=== PATIENT | female | born 1985 | race Caucasian/White ===

== ENCOUNTER 2016-12-26 09:40 | Emergency (ER) | payer OTHER ==
[~2016-12-26] VITALS: Ht 160 cm; Wt 65.0 kg
[~2016-12-26 09:40] MED LIST: ACET325T33 PO; HYDR-906 PO; IBUP-1542 PO; METFORMIN PO; ONDA4TAB8 PO
[2016-12-26 09:49] VITALS: Ht 160 cm; Wt 65.0 kg
[2016-12-26] MEDS ORDERED: IBUP-1542 PO (12:23)
[2016-12-26 12:37] VITALS: BP 128/68; PULSE 66; RESP 18
--- NOTE | 2016-12-26 12:52 | ERD ---
ER Documentation Chief Complaint Date/Time DATE: 12/26/16 TIME: 12:45 Chief Complaint PRESSURE LIKE CHEST PAIN NON RADIATING STARTED 1 HR AGO HPI 31-year-old female complaining of left-sided chest pain started since 8 AM this morning. Patient stated the pain is constant and sharp. Pain is worse with arm movement and when pressing on the chest. There is no radiation of the pain. Patient has history of diabetes, denies any other medical history. Denies shortness of breath. Denies injuries. Denies fever or chills. ROS All systems reviewed and are negative except as per history of present illness. Medications Home Meds Active Scripts Ibuprofen* (Motrin*) 600 Mg Tab, 600 MG PO Q6H Y for PAIN AND OR ELEVATED TEMP, #30 TAB Prov:AUBRIE BARTH DIRECTOR OF SPECIAL EVENTS 12/26/16 Ondansetron Hcl* (Zofran*) 4 Mg Tablet, 4 MG PO Q6H for NAUSEA AND/OR VOMITING, #30 TAB Prov:BENJAMIN KRISHNAMURTHY 08/04/16 Ibuprofen* (Motrin*) 600 Mg Tab, 600 MG PO Q6, #30 TAB Prov:BENJAMIN KRISHNAMURTHY C 08/04/16 Hydrocodone/Acetaminophen (Coleraine 5-325 Tablet) 1 Each Tablet, 1 TAB PO Q6H Y for PAIN, #20 TAB Prov:BENJAMIN KRISHNAMURTHY 08/04/16 Acetaminophen* (Tylenol*) 325 Mg Tablet, 2 TAB PO Q8 Y for PAIN AND OR ELEVATED TEMP, #20 TAB Prov:RAVEN GARCIA PA-C 09/23/15 Ibuprofen* (Motrin*) 600 Mg Tab, 600 MG PO Q6H Y for PAIN AND OR ELEVATED TEMP, #30 Prov:DAHLIA HOFF 05/11/15 Reported Medications [Metformin] No Conflict Check, PO DAILY for DIABETES 05/11/15 Allergies Allergies: Coded Allergies: No Known Allergy (Unverified , 05/11/15) PMhx/Soc History of Surgery: Yes ( X1) Anesthesia Reaction: No Hx Neurological Disorder: No Hx Respiratory Disorders: No Hx Cardiac Disorders: No Hx Psychiatric Problems: No Hx Miscellaneous Medical Probl: Yes (DM) Hx Alcohol Use: No Hx Substance Use: No Hx Tobacco Use: No Smoking Status: Never smoker Physical Exam Vitals Vital Signs Date Time Temp Pulse Resp B/P Pulse Ox O2 Delivery O2 Flow Rate FiO2 12/26/16 12:37 66 18 128/68 99 Room Air 12/26/16 09:49 98.0 84 19 119/83 97 Physical Exam General impression: Well-developed, well-nourished. Alert, oriented, in no acute distress Head: Normocephalic, atraumatic. Eyes: PERRL, EOM normal. Conjunctiva not injected. Respiration: Normal respiratory effort. Lungs clear to auscultate bilaterally. No wheezes, rales or rhonchi. Cardiovascular: Regular rate and rhythm. No murmurs or extra heart sounds. Reproducible chest wall tenderness noted on the left side. Abdomen: Abdomen normal to inspection. Nontender. No masses or organomegaly. Bowel sounds normal. Extremities: Extremities normal to inspection, nontender. ROM normal. Neurovascularly intact bilaterally. Neuro: Mental status normal, speech normal. [employer]ER grossly intact. Skin: Normal turgor. No rash or lesions. Psych: Normal mood and affect. Procedures/MDM Well-appearing 31-year-old female presents to ED with left-sided chest pain 3 hours. EKG: Normal sinus rhythm, left axis. No ST segment elevation or depression. No ectopic beats. No QT prolongation. No other EKG abnormalities. EKG read by Dr. Olmedo. Low suspicion for acute coronary syndrome, aortic dissection, pneumonia, pneumothorax, or PE. Patient has reproducible chest wall tenderness to palpation. Likely patient chest pain was from costochondritis. Patient appears well, stable for discharge and outpatient management. Medical decision making shared with patient and family. Education provided to patient and family. Patient and family expressed understanding of the plan. Medications on discharge: Ibuprofen. Follow-up: Primary care provider in 2-3 days or return to ED if worse. The case was reviewed and discussed with Dr. Whitmore, who agrees with the plan of care including labs, treatment, and advanced imaging as appropriate. Departure Diagnosis: Primary Impression: Chest wall pain Condition: Good Patient Instructions: Chest Wall Pain, Costochondritis Referrals: NEEMA KAPOOR (PCP) Additional Instructions: Llame al doctor GLENDAANA y bolivar clarence AMIRA PARA DENTRO DE 2-3 RAYMOND.Dgale a la secretaria que nosotros le instruimos hacer esta amira.Avise o llame si haines condicin se empeora antes de la amira. Regresa aqui si peor o no mejor. AUBRIE BARTH. MARY Dec 26, 2016 12:52
== END 2016-12-26 12:58 | disposition home or self-care (01) ==
LOC: FTE 09:40
DX: R07.89 Other chest pain (principal); E11.9 Type 2 diabetes mellitus without complications; Z79.84 Long term (current) use of oral hypoglycemic drugs
CPT/HCPCS: 93005; Z7502

== ENCOUNTER 2018-01-17 15:06 | Emergency (ER) | END 2018-01-17 15:26 | disposition home or self-care (01) ==